=== PATIENT | male | born 1975 | race African-American/Black ===

== ENCOUNTER 2020-07-22 04:45 | Emergency (ER) | payer SELFPAY ==
[2020-07-22] MEDS ORDERED: Boostrix 0.5 ML (Tdap) VIAL ONE (04:54)
[2020-07-22] MEDS ORDERED: Lidocaine 1% PF 5 ML VIAL ONE (05:33)
[2020-07-22] MEDS ORDERED: Lidocaine 4% Cream 5 GM TUBE w/ Tegaderm ONE (05:35)
[2020-07-22] MEDS ORDERED: Bacitracin 1 PK ONE (06:14)
== END 2020-07-22 06:45 | disposition home or self-care (01) ==
LOC: ERS 04:45
DX: S01.312A Laceration without foreign body of left ear, initial encounter (principal); S31.111A Laceration without foreign body of abdominal wall, left upper quadrant without penetration into peritoneal cavity, initial encounter; S51.811A Laceration without foreign body of right forearm, initial encounter; S01.81XA Laceration without foreign body of other part of head, initial encounter; W26.0XXA Contact with knife, initial encounter
CPT/HCPCS: 12007; 12013; 90471; 90715; G0390

== ENCOUNTER 2020-07-31 11:02 | Emergency (ER) | payer SELFPAY | END 2020-07-31 12:17 | disposition home or self-care (01) | LOC: ERS 11:02 | DX: S01.01XD Laceration without foreign body of scalp, subsequent encounter (principal); F17.210 Nicotine dependence, cigarettes, uncomplicated; Z48.00 Encounter for change or removal of nonsurgical wound dressing; Y04.0XXD Assault by unarmed brawl or fight, subsequent encounter ==

== ENCOUNTER 2021-03-08 08:54 | Emergency (ER) | payer SELFPAY | END 2021-03-08 10:46 | disposition home or self-care (01) | LOC: ERS 08:54 | DX: J06.9 Acute upper respiratory infection, unspecified (principal); F17.210 Nicotine dependence, cigarettes, uncomplicated | CPT/HCPCS: 99283 ==